=== PATIENT | female | born 1960 | race Asian ===

== ENCOUNTER 2023-04-14 15:58 | Observation (INO) ==
--- NOTE | 2023-04-14 17:05 | XRay Report ---
XR chest 1V not portable CLINICAL HISTORY: Chest pain, nonspecific TECHNIQUE: Single frontal radiograph of the chest was obtained. Comparison: None available at the time of this dictation. FINDINGS: No lines and tubes are seen. The cardiomediastinal silhouette is normal. The lungs are clear. No evid ence of pleural effusion or pneumothorax. IMPRESSION: No acute chest disease. ACT 112: Negative or not required by law. Electronically signed by: Dev Carnes M.D. 04/14/2023 5:03 PM
--- NOTE | 2023-04-14 17:08 | Emergency Department Note ---
Impression & Plan Intractable vomiting, Chest pain, Nausea & vomiting, Abdominal pain ED Provider Note HISTORY OF PRESENT ILLNESS: Patient is a 62-year-old female presenting with chest pain, shortness of breath and abdominal pain. Son provides history. Reports that the patient has been having intermittent complaints of substernal chest pain over the last few days. She has not been sleeping well and did not sleep well last night secondary to continued chest pain throughout the night. She reportedly had continued chest pain throughout this morning and vomited multiple times today. She is also had intermittent shortness of breath over the last few days. Denies any history of DVT or PE. She is not on any anticoagulation. Denies any history of cardiac stents. She has not had any fevers, but has been complaining of feeling very cold over the last few days. No abdominal pain complaints. ROS: as above PHYSICAL EXAM: Constitutional: Patient appears in no acute distress. HENT: Head: Normocephalic and atraumatic. Eyes: EOMI, PERRL Mouth/Throat: Mucous membranes moist. Neck: Trachea midline. Neck supple. Cardiovascular: RRR, No murmurs, rubs or gallops. Intact distal pulses. Pulmonary/Chest: No respiratory distress. Breath sounds clear and equal bilaterally. No wheezes or rales. Abdominal: Abdomen soft, no tenderness, rebound or guarding. Musculoskeletal: No edema, tenderness or deformity noted. Skin: Warm and dry. No rash, erythema, pallor or cyanosis Psychiatric: Appropriate mood and affect for situation. Neurological: Alert and keenly responsive. CN II-XII grossly intact, moving all extremities equally and fully. MDM: - Vitals signs stable. - History obtained via patient's son, given patient's language barrier. Patient presents with chest pain, shortness of breath, and abdominal pain. Patient's son reports that she has had intermittent complaints of substernal chest pain over the last few days. She not been sleeping well last night secondary to continued chest pain throughout the night. She also had chest pain throughout the morning and has vomited multiple times today. She has had intermittent shortness of breath over the last few days. Denies any DVT or PE history. She not on any anticoagulation. - Chronic conditions affecting care: Emphysema; rheumatic heart disease; Bechets disease - Differential diagnoses include, but are not limited to: cholecystitis; ACS; pneumonia; UTI; viral syndrome - Order placed for continuous cardiac monitoring. At this time, monitor showed rate of 65 bpm with normal sinus rhythm, per my interpretation. - External medical records reviewed. - EKG reviewed by myself showed normal sinus rhythm. Rate 83 bpm. QTc 474. No acute ischemic changes. - Laboratory workup interpreted by myself showed leukocytosis (11.89); slight hyponatremia (Na 135); elevated anion gap (12); normal troponin - COVID/flu/RSV negative - CXR negative for pneumonia, per my interpretation - CT abdomen/pelvis with IV contrast negative for acute pathology - Patient given 1L NS and 4 mg IV zofran in ER. She continued to vomit. Given 5 mg IV reglan. - Discussed results with patient and her son. Patient was initially wishing to be discharged home. I stated that as long as she can tolerate oral intake we could potentially discharge her. However, patient then proceeded to have another episode of profuse vomiting - Discussion was had with social service coordinator about patient's case and need for admission for observation - Hospitalist consulted for admission - [facility] ASSESSMENT AND PLAN: Diagnosis: nausea and vomiting; intractable vomiting; chest pain; generalized abdominal pain Plan: admit Past Med/Surg History Social History Smoking Status: Never smoker Feels Safe at Home: Yes Allergies Allergies Allergy/AdvReac Type Severity Reaction Status Date / Time No Known Allergies Allergy Unverified 04/14/23 20:27 Home Meds Home Medications Medication Instructions Recorded Confirmed methylprednisolone 4 mg tablet 2 mg PO DAILY 04/14/23 04/14/23 multivitamin 1 tab PO DAILY 04/14/23 04/14/23 Results & Data (ED) Vital Signs Vital Signs - 24 hr 04/14/23 16:10 04/14/23 17:03 04/14/23 17:04 Temperature 36.6 C Temperature Source Temporal Artery Scan Pulse Rate 84 65 Pulse Rate from SpO2 Sensor Respiratory Rate 24 Respiratory Effort / Characteristics Short of Breath Blood Pressure 134/83 Blood Pressure Mean 100 Pulse Oximetry 100 100 Oxygen Delivery Method Room Air Room Air Oxygen Flow Rate 0 Sepsis Recent Fever Within 48 Hours No Sepsis New/Unexplained Change in Mental Status No Sepsis Action Taken by Nursing No Action Required 04/14/23 17:04 04/14/23 16:54 04/14/23 17:00 Temperature Temperature Source Pulse Rate 65 Pulse Rate from SpO2 Sensor 65 Respiratory Rate 20 Respiratory Effort / Characteristics Blood Pressure 106/83 Blood Pressure Mean 89 Pulse Oximetry 100 100 Oxygen Delivery Method Room Air Oxygen Flow Rate Sepsis Recent Fever Within 48 Hours Sepsis New/Unexplained Change in Mental Status Sepsis Action Taken by Nursing 04/14/23 17:00 04/14/23 17:30 04/14/23 17:30 Temperature Temperature Source Pulse Rate 66 62 Pulse Rate from SpO2 Sensor 65 62 Respiratory Rate 25 H 24 Respiratory Effort / Characteristics Blood Pressure 129/75 Blood Pressure Mean 102 Pulse Oximetry 100 100 Oxygen Delivery Method Oxygen Flow Rate Sepsis Recent Fever Within 48 Hours Sepsis New/Unexplained Change in Mental Status Sepsis Action Taken by Nursing 04/14/23 17:42 04/14/23 17:42 04/14/23 20:53 Temperature Temperature Source Pulse Rate 68 62 Pulse Rate from SpO2 Sensor 69 Respiratory Rate 23 Respiratory Effort / Characteristics Blood Pressure 144/77 H Blood Pressure Mean 116 Pulse Oximetry 100 Oxygen Delivery Method Room Air Oxygen Flow Rate Sepsis Recent Fever Within 48 Hours Sepsis New/Unexplained Change in Mental Status Sepsis Action Taken by Nursing Laboratory Data 04/14/23 17:00 04/14/23 17:00 Lab Results 04/14/23 04/14/23 04/14/23 Range/Units 17:00 17:00 17:00 WBC 11.89 H (4.8-10.8) K/ul RBC 4.52 (4.20-5.40) M/uL Hgb 13.9 (12.0-16.0) g/dl Hct 38.6 (37.0-47.0) % MCV 85.4 (80.0-100.0) fL MCH 30.8 (25.0-34.0) pg MCHC 36.0 (32.0-36.0) g/dL RDW Std Deviation 38.0 (36.4-46.3) fL RDW Coeff of Enzo 12.1 (11.5-14.5) % Plt Count 230 (130-400) K/uL MPV 9.4 (9.4-12.4) fL Immature Gran % (Auto) 0.5 % Neut % (Auto) 83.7 % Lymph % (Auto) 10.0 % [place] % (Auto) 5.6 % Eos % (Auto) 0.0 % Baso % (Auto) 0.2 % Neut # (Auto) 9.95 H (1.40-6.50) K/uL Lymph # (Auto) 1.19 L (1.20-3.40) K/uL [place] # (Auto) 0.67 H (0.11-0.59) K/uL Eos # (Auto) 0.00 (0.00-0.50) K/uL Baso # (Auto) 0.02 (0.00-0.20) K/uL Immature Gran # (Auto) 0.06 (0.01-0.20) K/uL PT 10.4 (9.0-12.0) Seconds INR 0.9 (0.9-1.1) APTT 25.9 (21.0-31.0) Seconds PTT Ratio 0.9 Sodium 135 L (136-145) mmol/L Potassium 3.5 (3.5-5.1) mmol/L Chloride 103 (98-107) mmol/L Carbon Dioxide 20 L (21-32) mmol/L Anion Gap 12 H (3-11) BUN 16 (6-23) mg/dl Creatinine 0.79 (0.6-1.2) mg/dl Est Cr Clr Drug Dosing Not Reportable Est GFR ( Amer) 93.6 ml/min Est GFR (Non-Af Amer) 80.8 ml/min BUN/Creatinine Ratio 20.3 H (10-20) Glucose 131 H (70-99(Fasting)) mg/dl Calcium 10.0 (8.6-10.3) mg/dl Total Bilirubin 1.0 (0.2-1.0) mg/dl AST 20 (13-39) U/L ALT 12 (7-52) U/L Alkaline Phosphatase 71 (34-104) U/L Troponin I High Sens 4.2 (0-14) pg/ml Total Protein 7.7 (6.0-8.3) gm/dl Albumin 4.6 (3.4-5.0) gm/dl Globulin 3.1 (2.5-4.0) gm/dl Albumin/Globulin Ratio 1.5 (0.9-2) SARS-CoV-2 (PCR) (Negative) Influenza Type A (PCR) (Neg) Influenza Type B (PCR) (Neg) RSV (RT-PCR) (Neg) 04/14/23 Range/Units 17:00 WBC (4.8-10.8) K/ul RBC (4.20-5.40) M/uL Hgb (12.0-16.0) g/dl Hct (37.0-47.0) % MCV (80.0-100.0) fL MCH (25.0-34.0) pg MCHC (32.0-36.0) g/dL RDW Std Deviation (36.4-46.3) fL RDW Coeff of Enzo (11.5-14.5) % Plt Count (130-400) K/uL MPV (9.4-12.4) fL Immature Gran % (Auto) % Neut % (Auto) % Lymph % (Auto) % [place] % (Auto) % Eos % (Auto) % Baso % (Auto) % Neut # (Auto) (1.40-6.50) K/uL Lymph # (Auto) (1.20-3.40) K/uL [place] # (Auto) (0.11-0.59) K/uL Eos # (Auto) (0.00-0.50) K/uL Baso # (Auto) (0.00-0.20) K/uL Immature Gran # (Auto) (0.01-0.20) K/uL PT (9.0-12.0) Seconds INR (0.9-1.1) APTT (21.0-31.0) Seconds PTT Ratio Sodium (136-145) mmol/L Potassium (3.5-5.1) mmol/L Chloride (98-107) mmol/L Carbon Dioxide (21-32) mmol/L Anion Gap (3-11) BUN (6-23) mg/dl Creatinine (0.6-1.2) mg/dl Est Cr Clr Drug Dosing Est GFR ( Amer) ml/min Est GFR (Non-Af Amer) ml/min BUN/Creatinine Ratio (10-20) Glucose (70-99(Fasting)) mg/dl Calcium (8.6-10.3) mg/dl Total Bilirubin (0.2-1.0) mg/dl AST (13-39) U/L ALT (7-52) U/L Alkaline Phosphatase (34-104) U/L Troponin I High Sens (0-14) pg/ml Total Protein (6.0-8.3) gm/dl Albumin (3.4-5.0) gm/dl Globulin (2.5-4.0) gm/dl Albumin/Globulin Ratio (0.9-2) SARS-CoV-2 (PCR) NEGATIVE (Negative) Influenza Type A (PCR) Negative (Neg) Influenza Type B (PCR) Negative (Neg) RSV (RT-PCR) Negative (Neg) Administered Medications Discontinued Medications Sodium Chloride (Nss) 1,000 mls @ 999 mls/hr IV .Q1H1M ONE Stop: 04/14/23 22:10 Last Admin: 04/14/23 21:22 Dose: 999 mls/hr Documented By: ASPEN Ioversol (Optiray 320 100ml) 93 ml IV ONCE ONE Stop: 04/14/23 19:09 Last Admin: 04/14/23 19:08 Dose: 93 ml Documented By: JULIET Metoclopramide HCl (Metoclopramide Hcl Inj 5 Mg/Ml 2 Ml Vial) 5 mg IV ONE ONE Stop: 04/14/23 20:11 Last Admin: 04/14/23 20:31 Dose: 5 mg Documented By: ASPEN Ondansetron HCl (Ondansetron Inj 2 Mg/Ml 2 Ml Vial) 4 mg IV NOW STA Stop: 04/14/23 18:47 Last Admin: 04/14/23 18:50 Dose: 4 mg Documented By: MAXIM Imaging Data Radiologist's Impression: Chest X-Ray 04/14/23 16:15 XR chest 1V not portable CLINICAL HISTORY: Chest pain, nonspecific TECHNIQUE: Single frontal radiograph of the chest was obtained. Comparison: None available at the time of this dictation. FINDINGS: No lines and tubes are seen. The cardiomediastinal silhouette is normal. The lungs are clear. No evidence of pleural effusion or pneumothorax. IMPRESSION: No acute chest disease. ACT 112: Negative or not required by law. Electronically signed by: Dev Carnes M.D. 04/14/2023 5:03 PM Abdomen/Pelvis CT 04/14/23 18:37 Exam(s): CT ABDOMEN + PELVIS With Contrast IV Amt: 93 ml optiray 320 EXAM: CT Abdomen and Pelvis With Intravenous Contrast CLINICAL HISTORY: Reason for exam: abdominal pain; n/v. TECHNIQUE: Axial computed tomography images of the abdomen and pelvis with intravenous contrast. CTDI is 7.92 mGy and DLP is 370.61 mGy-cm. Automated exposure control was utilized for the study. A dose lowering technique was utilized adhering to the principles of ALARA. CONTRAST: Patient received 93 ml optiray 320 of IV contrast COMPARISON: No relevant prior studies available. FINDINGS: Lung bases: Unremarkable. No mass. No consolidation. ABDOMEN: Liver: Unremarkable. No mass. Gallbladder and bile ducts: Unremarkable. No calcified stones. No ductal dilation. Pancreas: Unremarkable. No mass. No ductal dilation. Spleen: Unremarkable. No splenomegaly. Adrenals: Unremarkable. No mass. Kidneys and ureters: Unremarkable. No solid mass. No hydronephrosis. Stomach and bowel: Unremarkable. No obstruction. No mucosal thickening. PELVIS: Appendix: No findings to suggest acute appendicitis. Bladder: Unremarkable. No mass. Reproductive: Unremarkable as visualized. ABDOMEN and PELVIS: Intraperitoneal space: Unremarkable. No free air. No significant fluid collection. Bones/joints: No acute fracture. No dislocation. Soft tissues: Unremarkable. Vasculature: Unremarkable. No abdominal aortic aneurysm. Lymph nodes: Unremarkable. No enlarged lymph nodes. IMPRESSION: Normal abdomen and pelvis CT. Electronically signed by: Rafael Angel MD 04/14/23 19:54 PM Discharge Plan Visit Data Chief Complaint: Cardiac Assessment Stated Complaint: NUMB FINGERS, BACK AND CHEST PAIN ED Provider: Perla Otero Discharge Problem: Intractable vomiting, Chest pain, Nausea & vomiting, Abdominal pain Forms Stand Alone Forms: [employer] Prescriptions Prescriptions: No Action multivitamin Tablet 1 tab PO DAILY methylprednisolone 4 mg Tablet 2 mg PO DAILY Referrals Referrals: PCP,NO [Primary Care Provider] -
[2023-04-14 17:24] LABS: Basophils # (auto) 0.02 K/uL (0.00-0.20); Basophils % (auto) 0.2 %; Hematocrit (blood only) 38.6 % (37.0-47.0); Hemoglobin 13.9 g/dl (12.0-16.0); Immature Granulocytes # (auto) 0.06 K/uL (0.01-0.20); Immature Granulocytes % (auto) 0.5 %; Lymphocytes # (auto) 1.19 K/uL (1.20-3.40); Mean Corpuscular Hemoglobin 30.8 pg (25.0-34.0); Mean Corpuscular Volume 85.4 fL (80.0-100.0); Mean Platelet Volume 9.4 fL (9.4-12.4); Monocytes # (auto) 0.67 K/uL (0.11-0.59); Monocytes % (auto) 5.6 %; Neutrophils # (auto) 9.95 K/uL (1.40-6.50); Neutrophils % (auto) 83.7 %; Platelet Count 230 K/uL (130-400); RDW Coefficient of Variation 12.1 % (11.5-14.5); Red Blood Count 4.52 M/uL (4.20-5.40); White Blood Count 11.89 K/ul (4.8-10.8)
[2023-04-14 17:38] LABS: Alanine Aminotransferase 12 U/L (7-52); Albumin Globulin Ratio 1.5 (0.9-2); Albumin Level 4.6 gm/dl (3.4-5.0); Alkaline Phosphatase 71 U/L (34-104); Anion Gap 12 (3-11); Aspartate Aminotransferase 20 U/L (13-39); BUN Creatinine Ratio 20.3 (10-20); Blood Urea Nitrogen 16 mg/dl (6-23); Carbon Dioxide 20 mmol/L (21-32); Chloride 103 mmol/L (98-107); Est GFR (African American) 93.6 ml/min; Est GFR (Non-African American) 80.8 ml/min; Globulin 3.1 gm/dl (2.5-4.0); Glucose 131 mg/dl (70-99(Fasting)); Potassium 3.5 mmol/L (3.5-5.1); Sodium 135 mmol/L (136-145); Total Protein 7.7 gm/dl (6.0-8.3)
[2023-04-14 17:44] LABS: Troponin I High Sensitivity 4.2 pg/ml (0-14)
[2023-04-14 17:48] LABS: INR 0.9 (0.9-1.1); Partial Thromboplastin Ratio 0.9; Partial Thromboplastin Time 25.9 Seconds (21.0-31.0); Prothrombin Time 10.4 Seconds (9.0-12.0)
[2023-04-14 18:02] LABS: Influenza A virus by PCR Negative (Neg); Influenza B virus by PCR Negative (Neg); RSV by PCR Negative (Neg); SARS CoV2 RNA(COVID-19) Ceph NEGATIVE (Negative)
[2023-04-14] MEDS ORDERED: ONDANSETRON INJ 2 MG/ML 2 ML VIAL IV STA (18:46)
[2023-04-14] MEDS ORDERED: OPTIRAY 320 100ml IV ONE (19:08)
--- NOTE | 2023-04-14 19:55 | CT Scan Report ---
Exam(s): CT ABDOMEN + PELVIS With Contrast IV Amt: 93 ml optiray 320 EXAM: CT Abdomen and Pelvis With Intravenous Contrast CLINICAL HISTORY: Reason for exam: abdominal pain; n/v. TECHNIQUE: Axial computed tomography images of the abdomen and pelvis with intravenous contrast. CTDI is 7.92 mGy and DLP is 370.61 mGy-cm. Automated exposure control was utilized for the study. A dose lowering technique was utilized adhering to the principles of ALARA. CONTRAST: Patient received 93 ml optiray 320 of IV contrast COMPARISON: No relevant prior studies available. FINDINGS: Lung bases: Unremarkable. No mass. No consolidation. ABDOMEN: Liver: Unremarkable. No mass. Gallbladder and bile ducts: Unremarkable. No calcified stones. No ductal dilation. Pancreas: Unremarkable. No mass. No ductal dilation. Spleen: Unremarkable. No splenomegaly. Adrenals: Unremarkable. No mass. Kidneys and ureters: Unremarkable. No solid mass. No hydronephrosis. Stomach and bowel: Unremarkable. No obstruction. No mucosal thickening. PELVIS: Appendix: No findings to suggest acute appendicitis. Bladder: Unremarkable. No mass. Reproductive: Unremarkable as visualized. ABDOMEN and PELVIS: Intraperitoneal space: Unremarkable. No free air. No significant fluid collection. Bones/joints: No acute fracture. No dislocation. Soft tissues: Unremarkable. Vasculature: Unremarkable. No abdominal aortic aneurysm. Lymph nodes: Unremarkable. No enlarged lymph nodes. IMPRESSION: Normal abdomen and pelvis CT. Electronically signed by: Rafael Angel MD 04/14/23 19:54 PM
[2023-04-14] MEDS ORDERED: METOCLOPRAMIDE HCL INJ 5 MG/ML 2 ML VIAL IV ONE (20:10)
[2023-04-14] MEDS ORDERED: SODIUM CHLORIDE 0.9% 1,000 ML IV ONE (21:10)
[2023-04-14 22:48] LABS: Appearance Urine Clear (Clear); Bacteria Urine Automated Negative (Negative); Bilirubin Urine Negative (Negative); Blood Urine 1+ (Negative); Cast Urine Automated 0 /lpf (0-5); Color Urine Yellow; Epithelial Cell Urine Auto 0-5 /lpf (0-5); Glucose Urine UA Negative (Negative); Ketones Urine 4+ (Negative); Leukocyte Esterase Urine Negative (Negative); Nitrite Urine Negative (Negative); Protein Urine Negative (Negative); Specific Gravity Urine > 1.045 (1.000-1.030); Urobilinogen Urine Negative (Negative); pH Urine 7.5 (4.5-7.5)
--- NOTE | 2023-04-14 23:04 | History & Physical Report ---
Date of Service April 14, 2023 Assessment & Plan (1) Intractable vomiting: Plan: Multiple episodes of nausea and vomiting. PO intolerance. Decreased intake over the last 2 days. Suspect viral. Workup and CT abdomen largely unremarkable -Observation to medical -IVF - LR at 125mL/hr -Zofran PRN -Reglan PRN -PO challenge in AM -Phosphorous repletion -Continue home steroid - Solumedrol 2mg po daily for her "immune system" per son History of Present Illness Chief Complaint: nausea and vomiting Primary Care Provider: ARABELLA PCP 62yo female presenting with persistent nausea and vomiting. Patient is Mandarin-speaking only. History obtained from son at bedside. He reports that patient has not felt well for the last two days. She has had general malaise. Tonight she developed nausea with multiple episodes of non-bloody/non-bilious emesis followed by chest pressure, back pain and numbness in her fingers. Unable to tolerate PO intake in the ER. Given Zofran and Reglan. Vomited after crackers and water. No fever, chills, diarrhea. No additional complaints. Decreased oral intake for the last two days. In the ER she is afebrile HD stable ER Course: Reglan Zofran NSS Allergies Allergy/AdvReac Type Severity Reaction Status Date / Time No Known Allergies Allergy Unverified 04/14/23 20:27 Home Medications Medication Instructions Recorded Confirmed Type methylprednisolone 4 mg tablet 2 mg PO DAILY 04/14/23 04/14/23 History multivitamin 1 tab PO DAILY 04/14/23 04/14/23 History Past Med/Surg History Social History Smoking Status: Never smoker Second Hand Exposure: No; Do You Dip or Chew Tobacco: No; Tobacco Cessation Education Requested by Patient: No Hx Alcohol Use: Yes Alcohol type: wine Hx Substance Use: No Preferred Language: Mandarin Sami Communication Ability: Effective Communication Tools: Physical Gestures and Other H[employer] Commanding Officer Required: Yes Beliefs That Will Affect Care: None Current Living Situation: Family Other Information That Helps Us Care for You: No Feels Safe at Home: Yes Safety Concerns: Feels Safe At This Time Assistive Devices: None Review of Systems Review of Systems: All systems reviewed & are unremarkable except as noted in HPI & below Physical Exam Physical Exam: General: patient resting comfortably, NAD, non-toxic in appearance Skin: warm, dry, intact, no rashes or lesions HEENT: NC/AT, PERRL, EOMI, anicteric sclera, conjunctiva without injection, external ear normal to inspection and nontender, nares patent, dry mucus membranes, dentition intact, no oropharyngeal lesions, neck supple, trachea midline, no LAD, no thyromegaly, no JVD Heart: +S1/S2, regular, no m/r/g Lungs: equal air entry bilaterally, no rales/rhonchi/wheezes Abd: +BS, soft, NT/ND, no masses/organomegaly/ascites Ext: warm, 2+ pulses in UE/LE bilaterally, no clubbing/cyanosis or edema Neuro: nonfocal Results & Data Results & Data Vital Signs (Past 12 Hours) Vital Signs Temp Pulse Resp BP Pulse Ox O2 Del Method O2 Flow Rate 04/14/23 21:30 62 24 134/80 97 04/14/23 21:00 61 16 147/83 H 96 04/14/23 20:30 60 20 155/82 H 99 04/14/23 20:01 64 20 148/80 H 100 04/14/23 19:30 59 L 20 122/75 99 04/14/23 19:00 71 20 145/82 H 99 04/14/23 20:53 62 04/14/23 17:42 144/77 H 04/14/23 17:42 68 23 100 Room Air 04/14/23 17:30 62 24 100 04/14/23 17:30 129/75 04/14/23 17:00 66 25 H 100 04/14/23 17:00 106/83 04/14/23 16:54 65 20 100 04/14/23 17:04 100 Room Air 04/14/23 17:04 100 Room Air 0 04/14/23 17:03 65 04/14/23 16:10 36.6 C 84 24 134/83 100 Room Air Laboratory Results Laboratory Results WBC 11.89 K/ul (4.8-10.8) H 04/14/23 17:00 RBC 4.52 M/uL (4.20-5.40) 04/14/23 17:00 Hgb 13.9 g/dl (12.0-16.0) 04/14/23 17:00 Hct 38.6 % (37.0-47.0) 04/14/23 17:00 MCV 85.4 fL (80.0-100.0) 04/14/23 17:00 MCH 30.8 pg (25.0-34.0) 04/14/23 17:00 MCHC 36.0 g/dL (32.0-36.0) 04/14/23 17:00 RDW Std Deviation 38.0 fL (36.4-46.3) 04/14/23 17:00 RDW Coeff of Enzo 12.1 % (11.5-14.5) 04/14/23 17:00 Plt Count 230 K/uL (130-400) 04/14/23 17:00 MPV 9.4 fL (9.4-12.4) 04/14/23 17:00 Immature Gran % (Auto) 0.5 % 04/14/23 17:00 Neut % (Auto) 83.7 % 04/14/23 17:00 Lymph % (Auto) 10.0 % 04/14/23 17:00 [place] % (Auto) 5.6 % 04/14/23 17:00 Eos % (Auto) 0.0 % 04/14/23 17:00 Baso % (Auto) 0.2 % 04/14/23 17:00 Neut # (Auto) 9.95 K/uL (1.40-6.50) H 04/14/23 17:00 Lymph # (Auto) 1.19 K/uL (1.20-3.40) L 04/14/23 17:00 [place] # (Auto) 0.67 K/uL (0.11-0.59) H 04/14/23 17:00 Eos # (Auto) 0.00 K/uL (0.00-0.50) 04/14/23 17:00 Baso # (Auto) 0.02 K/uL (0.00-0.20) 04/14/23 17:00 Immature Gran # (Auto) 0.06 K/uL (0.01-0.20) 04/14/23 17:00 PT 10.4 Seconds (9.0-12.0) 04/14/23 17:00 INR 0.9 (0.9-1.1) 04/14/23 17:00 APTT 25.9 Seconds (21.0-31.0) 04/14/23 17:00 PTT Ratio 0.9 04/14/23 17:00 Sodium 135 mmol/L (136-145) L 04/14/23 17:00 Potassium 3.5 mmol/L (3.5-5.1) 04/14/23 17:00 Chloride 103 mmol/L (98-107) 04/14/23 17:00 Carbon Dioxide 20 mmol/L (21-32) L 04/14/23 17:00 Anion Gap 12 (3-11) H 04/14/23 17:00 BUN 16 mg/dl (6-23) 04/14/23 17:00 Creatinine 0.79 mg/dl (0.6-1.2) 04/14/23 17:00 Est Cr Clr Drug Dosing Not Reportable 04/14/23 17:00 Est GFR ( Amer) 93.6 ml/min 04/14/23 17:00 Est GFR (Non-Af Amer) 80.8 ml/min 04/14/23 17:00 BUN/Creatinine Ratio 20.3 (10-20) H 04/14/23 17:00 Glucose 131 mg/dl (70-99(Fasting)) H 04/14/23 17:00 Calcium 10.0 mg/dl (8.6-10.3) 04/14/23 17:00 Phosphorus 1.8 mg/dl (2.5-4.9) L 04/14/23 17:00 Magnesium 1.9 mg/dl (1.7-2.4) 04/14/23 17:00 Total Bilirubin 1.0 mg/dl (0.2-1.0) 04/14/23 17:00 AST 20 U/L (13-39) 04/14/23 17:00 ALT 12 U/L (7-52) 04/14/23 17:00 Alkaline Phosphatase 71 U/L (34-104) 04/14/23 17:00 Troponin I High Sens 4.2 pg/ml (0-14) 04/14/23 17:00 Total Protein 7.7 gm/dl (6.0-8.3) 04/14/23 17:00 Albumin 4.6 gm/dl (3.4-5.0) 04/14/23 17:00 Globulin 3.1 gm/dl (2.5-4.0) 04/14/23 17:00 Albumin/Globulin Ratio 1.5 (0.9-2) 04/14/23 17:00 Urine Color Yellow 04/14/23 22:20 Urine Appearance Clear (Clear) 04/14/23 22:20 Urine pH 7.5 (4.5-7.5) 04/14/23 22:20 Ur Specific [place]inger > 1.045 (1.000-1.030) H 04/14/23 22:20 Urine Protein Negative (Negative) 04/14/23 22:20 Urine Glucose (UA) Negative (Negative) 04/14/23 22:20 Urine Ketones 4+ (Negative) H 04/14/23 22:20 Urine Blood 1+ (Negative) H 04/14/23 22:20 Urine Nitrite Negative (Negative) 04/14/23 22:20 Urine Bilirubin Negative (Negative) 04/14/23 22:20 Urine Urobilinogen Negative (Negative) 04/14/23 22:20 Ur Leukocyte Esterase Negative (Negative) 04/14/23 22:20 Urine WBC (Auto) 1-5 /hpf (0-5) 04/14/23 22:20 Urine RBC (Auto) 5-10 /hpf (0-4) H 04/14/23 22:20 U Hyaline Cast (Auto) 0 /lpf (0-5) 04/14/23 22:20 U Epithel Cells (Auto) 0-5 /lpf (0-5) 04/14/23 22:20 Urine Bacteria (Auto) Negative (Negative) 04/14/23 22:20 SARS-CoV-2 (PCR) NEGATIVE (Negative) 04/14/23 17:00 Influenza Type A (PCR) Negative (Neg) 04/14/23 17:00 Influenza Type B (PCR) Negative (Neg) 04/14/23 17:00 RSV (RT-PCR) Negative (Neg) 04/14/23 17:00 Impressions Chest X-Ray 04/14/23 16:15 XR chest 1V not portable CLINICAL HISTORY: Chest pain, nonspecific TECHNIQUE: Single frontal radiograph of the chest was obtained. Comparison: None available at the time of this dictation. FINDINGS: No lines and tubes are seen. The cardiomediastinal silhouette is normal. The lungs are clear. No evidence of pleural effusion or pneumothorax. IMPRESSION: No acute chest disease. ACT 112: Negative or not required by law. Electronically signed by: Dev Carnes M.D. 04/14/2023 5:03 PM Abdomen/Pelvis CT 04/14/23 18:37 Exam(s): CT ABDOMEN + PELVIS With Contrast IV Amt: 93 ml optiray 320 EXAM: CT Abdomen and Pelvis With Intravenous Contrast CLINICAL HISTORY: Reason for exam: abdominal pain; n/v. TECHNIQUE: Axial computed tomography images of the abdomen and pelvis with intravenous contrast. CTDI is 7.92 mGy and DLP is 370.61 mGy-cm. Automated exposure control was utilized for the study. A dose lowering technique was utilized adhering to the principles of ALARA. CONTRAST: Patient received 93 ml optiray 320 of IV contrast COMPARISON: No relevant prior studies available. FINDINGS: Lung bases: Unremarkable. No mass. No consolidation. ABDOMEN: Liver: Unremarkable. No mass. Gallbladder and bile ducts: Unremarkable. No calcified stones. No ductal dilation. Pancreas: Unremarkable. No mass. No ductal dilation. Spleen: Unremarkable. No splenomegaly. Adrenals: Unremarkable. No mass. Kidneys and ureters: Unremarkable. No solid mass. No hydronephrosis. Stomach and bowel: Unremarkable. No obstruction. No mucosal thickening. PELVIS: Appendix: No findings to suggest acute appendicitis. Bladder: Unremarkable. No mass. Reproductive: Unremarkable as visualized. ABDOMEN and PELVIS: Intraperitoneal space: Unremarkable. No free air. No significant fluid collection. Bones/joints: No acute fracture. No dislocation. Soft tissues: Unremarkable. Vasculature: Unremarkable. No abdominal aortic aneurysm. Lymph nodes: Unremarkable. No enlarged lymph nodes. IMPRESSION: Normal abdomen and pelvis CT. Electronically signed by: Rafael Angel MD 04/14/23 19:54 PM PG Care Time/CCT Total # of Minutes Spent Total Time Spent with Patient: Total time spent is greater than 50% in coordination of care (as documented) at patient's floor/unit and/or counseling patient: Coding Level of Care Code 16186 INT INP/OBS CARE 2/55MIN Diagnoses Intractable vomiting R11.10
[2023-04-15] MEDS ORDERED: ACETAMINOPHEN 325 MG TAB PO PRN (00:03)
[2023-04-15] MEDS ORDERED: ONDANSETRON INJ 2 MG/ML 2 ML VIAL IV PRN (00:03)
[2023-04-15] MEDS ORDERED: LACTATED RINGER'S 1,000 ML IV STA (00:09)
[2023-04-15] MEDS: METOCLOPRAMIDE HCL INJ 5 MG/ML 2 ML VIAL IV SCH ×4 (00:36→19:00)
[2023-04-15 01:46] LABS: Magnesium 1.9 mg/dl (1.7-2.4); Phosphorus 1.8 mg/dl (2.5-4.9)
[2023-04-15] MEDS ORDERED: POTASSIUM PHOS 3 MMOL/1 ML INFUSION IV STA (05:39)
[2023-04-15] MEDS ORDERED: POTASSIUM PHOSPHATE 15 MMOL in SODIUM CHLORIDE 0.9% 250 ML IV ONE (06:00)
[2023-04-15 06:40] LABS: Hematocrit (blood only) 34.9 % (37.0-47.0); Hemoglobin 12.2 g/dl (12.0-16.0); Mean Corpuscular Hemoglobin 30.9 pg (25.0-34.0); Mean Corpuscular Volume 88.4 fL (80.0-100.0); Mean Platelet Volume 9.5 fL (9.4-12.4); Platelet Count 171 K/uL (130-400); RDW Coefficient of Variation 12.2 % (11.5-14.5); RDW Standard Deviation 39.5 fL (36.4-46.3); Red Blood Count 3.95 M/uL (4.20-5.40); White Blood Count 8.76 K/ul (4.8-10.8)
[2023-04-15 07:05] LABS: BUN Creatinine Ratio 22.7 (10-20); Calcium 8.7 mg/dl (8.6-10.3); Est GFR (African American) 110.5 ml/min; Est GFR (Non-African American) 95.3 ml/min; Potassium 3.6 mmol/L (3.5-5.1)
[2023-04-15] MEDS: methylPREDNISolone 4 MG TAB PO SCH (10:36)
[2023-04-15] MEDS ORDERED: ALUMINUM/MAGNESIUM/SIMETH (MAALOX MAX) 30 ML UDC PO PRN (11:28)
[2023-04-15] MEDS: D5W AND NSS 1,000 ML IV SCH ×2 (12:42→22:58)
--- NOTE | 2023-04-15 13:15 | Electrocardiogram Report ---
Test Reason : Blood Pressure : / mmHG Vent. Rate : 083 BPM Atrial Rate : 083 BPM P-R Int : 144 ms QRS Dur : 080 ms QT Int : 404 ms P-R-T Axes : 086 087 078 degrees QTc Int : 474 ms Normal sinus rhythm Diffuse Minor Nonspecific ST abnormality Abnormal ECG No previous ECGs available Confirmed by Evan Sanches ([id number]) on 04/15/2023 1:15:31 PM Referred By: REFERRED SELF Confirmed By:Evan Sanches
--- NOTE | 2023-04-15 14:31 | Hospitalist Progress Note ---
Date of Service April 15, 2023 Assessment & Plan (1) Intractable vomiting: Plan: Likely due to viral gastroenteritis CT abdomen negative Urinalysis negative COVID-negative Flu negative RSV negative Will treat supportively and conservatively. Complete bowel rest. NPO. Change IV fluids to D5 normal saline Continue Zofran, Reglan -Continue home steroid - Solumedrol 2mg po daily for her "immune system" per son Admission and Anticipated Discharge Date Admission Date: April 14, 2023 Subjective patient continues to be nauseous and vomiting. She is not tolerating a p.o. diet. Accompanied by her son who is interpreting Review of Systems Review of Systems: All systems reviewed & are unremarkable except as noted in Subjective Physical Exam Physical Exam: general: Awake, conversant. Appears quite distressed due to nausea. Heart: S1, S2/regular rate and rhythm, no murmur rubs or gallops Lungs: Clear to auscultation bilaterally. Normal effort Abdomen: Soft/nondistended. Mild tenderness in the upper abdomen without rebound, rigidity or guarding. No hepatosplenomegaly Extremities: No clubbing/cyanosis. No edema Behavior: Appropriate, cooperative Results & Data Results & Data Vital Signs (Past 12 Hours) Vital Signs Temp Pulse Resp BP Pulse Ox O2 Del Method 04/15/23 08:17 36.9 C 61 16 119/77 99 Room Air Laboratory Results Abnormal lab results 04/14/23 04/14/23 04/14/23 Range/Units 17:00 17:00 22:20 WBC 11.89 H (4.8-10.8) K/ul RBC (4.20-5.40) M/uL Hct (37.0-47.0) % Neut # (Auto) 9.95 H (1.40-6.50) K/uL Lymph # (Auto) 1.19 L (1.20-3.40) K/uL [place] # (Auto) 0.67 H (0.11-0.59) K/uL Sodium 135 L (136-145) mmol/L Carbon Dioxide 20 L (21-32) mmol/L Anion Gap 12 H (3-11) BUN/Creatinine Ratio 20.3 H (10-20) Glucose 131 H (70-99(Fasting)) mg/dl Phosphorus 1.8 L (2.5-4.9) mg/dl Ur Specific [place] > 1.045 H (1.000-1.030) Urine Ketones 4+ H (Negative) Urine Blood 1+ H (Negative) Urine RBC (Auto) 5-10 H (0-4) /hpf 04/15/23 04/15/23 Range/Units 06:17 06:17 WBC (4.8-10.8) K/ul RBC 3.95 L (4.20-5.40) M/uL Hct 34.9 L (37.0-47.0) % Neut # (Auto) (1.40-6.50) K/uL Lymph # (Auto) (1.20-3.40) K/uL [place] # (Auto) (0.11-0.59) K/uL Sodium (136-145) mmol/L Carbon Dioxide (21-32) mmol/L Anion Gap (3-11) BUN/Creatinine Ratio 22.7 H (10-20) Glucose 139 H (70-99(Fasting)) mg/dl Phosphorus (2.5-4.9) mg/dl Ur Specific [place] (1.000-1.030) Urine Ketones (Negative) Urine Blood (Negative) Urine RBC (Auto) (0-4) /hpf Diagnostic Findings Chest X-Ray 04/14/23 16:15 XR chest 1V not portable CLINICAL HISTORY: Chest pain, nonspecific TECHNIQUE: Single frontal radiograph of the chest was obtained. Comparison: None available at the time of this dictation. FINDINGS: No lines and tubes are seen. The cardiomediastinal silhouette is normal. The lungs are clear. No evidence of pleural effusion or pneumothorax. IMPRESSION: No acute chest disease. ACT 112: Negative or not required by law. Electronically signed by: Dev Carnes M.D. 04/14/2023 5:03 PM Abdomen/Pelvis CT 04/14/23 18:37 Exam(s): CT ABDOMEN + PELVIS With Contrast IV Amt: 93 ml optiray 320 EXAM: CT Abdomen and Pelvis With Intravenous Contrast CLINICAL HISTORY: Reason for exam: abdominal pain; n/v. TECHNIQUE: Axial computed tomography images of the abdomen and pelvis with intravenous contrast. CTDI is 7.92 mGy and DLP is 370.61 mGy-cm. Automated exposure control was utilized for the study. A dose lowering technique was utilized adhering to the principles of ALARA. CONTRAST: Patient received 93 ml optiray 320 of IV contrast COMPARISON: No relevant prior studies available. FINDINGS: Lung bases: Unremarkable. No mass. No consolidation. ABDOMEN: Liver: Unremarkable. No mass. Gallbladder and bile ducts: Unremarkable. No calcified stones. No ductal dilation. Pancreas: Unremarkable. No mass. No ductal dilation. Spleen: Unremarkable. No splenomegaly. Adrenals: Unremarkable. No mass. Kidneys and ureters: Unremarkable. No solid mass. No hydronephrosis. Stomach and bowel: Unremarkable. No obstruction. No mucosal thickening. PELVIS: Appendix: No findings to suggest acute appendicitis. Bladder: Unremarkable. No mass. Reproductive: Unremarkable as visualized. ABDOMEN and PELVIS: Intraperitoneal space: Unremarkable. No free air. No significant fluid collection. Bones/joints: No acute fracture. No dislocation. Soft tissues: Unremarkable. Vasculature: Unremarkable. No abdominal aortic aneurysm. Lymph nodes: Unremarkable. No enlarged lymph nodes. IMPRESSION: Normal abdomen and pelvis CT. Electronically signed by: Rafael Angel MD 04/14/23 19:54 PM PG Care Time/CCT Total # of Minutes Spent Total Time Spent with Patient: Total time spent is greater than 50% in coordination of care (as documented) at patient's floor/unit and/or counseling patient: Coding Level of Care Code 66685 SUB INP/OBS CARE 2/35MIN Diagnoses Intractable vomiting R11.10
[2023-04-16] MEDS: METOCLOPRAMIDE HCL INJ 5 MG/ML 2 ML VIAL IV SCH ×2 (00:35→05:57)
[2023-04-16] MEDS ORDERED: METOCLOPRAMIDE HCL INJ 5 MG/ML 2 ML VIAL IV PRN (08:08)
[2023-04-16] MEDS: D5W AND NSS 1,000 ML IV SCH (08:58)
[2023-04-16] MEDS: methylPREDNISolone 4 MG TAB PO SCH (08:59)
[2023-04-16 09:16] LABS: BUN Creatinine Ratio 17.8 (10-20); Calcium 8.6 mg/dl (8.6-10.3); Creatinine Clr Calc Pharmacy 73.3 ml/min; Est GFR (Non-African American) 88.9 ml/min; Potassium 3.7 mmol/L (3.5-5.1)
--- NOTE | 2023-04-16 11:57 | Discharge Summary ---
Date of Service April 16, 2023 Admission HPI Per Admitting Provider 62yo female presenting with persistent nausea and vomiting. Patient is Mandarin-speaking only. History obtained from son at bedside. He reports that patient has not felt well for the last two days. She has had general malaise. Tonight she developed nausea with multiple episodes of non-bloody/non-bilious emesis followed by chest pressure, back pain and numbness in her fingers. Unable to tolerate PO intake in the ER. Given Zofran and Reglan. Vomited after crackers and water. No fever, chills, diarrhea. No additional complaints. Decreased oral intake for the last two days. In the ER she is afebrile HD stable ER Course: Reglan Zofran NSS Admission Exam Per Admitting Provider General: patient resting comfortably, NAD, non-toxic in appearance Skin: warm, dry, intact, no rashes or lesions HEENT: NC/AT, PERRL, EOMI, anicteric sclera, conjunctiva without injection, external ear normal to inspection and nontender, nares patent, dry mucus membranes, dentition intact, no oropharyngeal lesions, neck supple, trachea midline, no LAD, no thyromegaly, no JVD Heart: +S1/S2, regular, no m/r/g Lungs: equal air entry bilaterally, no rales/rhonchi/wheezes Abd: +BS, soft, NT/ND, no masses/organomegaly/ascites Ext: warm, 2+ pulses in UE/LE bilaterally, no clubbing/cyanosis or edema Neuro: nonfocal Principal Diagnosis intractable nausea and vomiting secondary to acute viral gastroenteritis. Discharge Exam general: Awake, conversant. Not in any distress today Heart: S1, S2/regular rate and rhythm, no murmur rubs or gallops Lungs: Clear to auscultation bilaterally. Normal effort Abdomen: Soft/nondistended. nontender. No hepatosplenomegaly Extremities: No clubbing/cyanosis. No edema Behavior: Appropriate, cooperative Discharge Data Allergies Allergy/AdvReac Type Severity Reaction Status Date / Time No Known Allergies Allergy Unverified 04/14/23 20:27 Consultations 04/14/23 22:47 ED Decision to Admit Stat Ordered Studies 04/14/23 18:37 CT Abd and Pelvis [CT abd pelvis IV con only] Stat Hospital Course (1) Intractable vomiting: Likely due to viral gastroenteritis CT abdomen negative Urinalysis negative COVID-negative Flu negative RSV negative was treated supportively and conservatively with bowel rest and IV fluids. currently tolerating diet without any nausea or vomiting -Continue home steroid - Solumedrol 2mg po daily for her "immune system" per son Plan advised to follow-up with PCP in 1 week. PCP will need to be established . Her son is working on that. Total Time Total Time Spent Total Time Spent (In Minutes): 35 Discharge Plan Discharge Items Patient Disposition: Home - Self-Care Reason For Visit: INTRACTABLE NAUSEA Discharge Diagnosis: Intractable vomiting due to viral gastroenteritis Activity: Resume your previous activity Non-emergency contact: Primary Care Provider Call non-emergency contact if: you have any medication questions and your symptoms worsen Follow-up/Referrals: PCP,NO [Primary Care Provider] - Diet: Regular Addtl Attending Provider Instructions: Advised to follow-up with PCP in 1 week Pending Studies at Discharge: No Stand-Alone Forms: My [facility] Medications and DC Order Prescriptions: Continued multivitamin Tablet 1 tab PO DAILY methylprednisolone 4 mg Tablet 2 mg PO DAILY Discharge Orders: Discharge Order (Routine); Ordered 04/16/23 Ordered By: Tadeo Purdy Admission Data Admit Date/Time: 04/14/23 23:03 Attending Provider: Tadeo Purdy Admit Provider: Luh King Primary Care Provider: PCP,NO Other Providers: Luh King Other Interventions: Discharge Summary Assessment (RN) Last Done: 04/16/23 12:49 Coding Level of Care Code 13288 INP/OBS DISCH >30 MIN Diagnoses Intractable vomiting R11.10
== END 2023-04-16 14:00 | disposition home or self-care (01) ==
LOC: EDBD → 3E 15:58 → ED 15:58 → SUATTDRO 23:03 → 3E 23:30
DX: A08.4 Viral intestinal infection, unspecified